=== PATIENT | male | born 1930 | race Caucasian/White ===

== ENCOUNTER 2016-07-16 13:45 | Observation (INO) | payer OTHER, MEDICARE ==
--- NOTE | 2016-07-08 13:49 | GHP ---
[f rep st] PREOP HISTORY AND PHYSICAL DATE OF ADMISSION: For upcoming surgery 07/15/2016 HISTORY OF PRESENT ILLNESS: Patient is an 86-year-old male referred by Dr. Lisa for evaluation of a right arteriovenous fistula. The patient reports it is enlarging and becoming more bothersome. ALLERGIES: Actos. MEDICATIONS: Aspirin, calcium, Lantus, NovoLog, Tylenol. PAST MEDICAL HISTORY: Diabetes, end-stage renal disease, hypertension. PAST SURGICAL HISTORY: Arteriovenous fistula placement. REVIEW OF SYSTEMS: Negative 10-point review of systems. PHYSICAL EXAM: GENERAL: Patient is a pleasant male in no apparent distress. HEAD AND NECK: Normocephalic atraumatic. Normal color. No JVD. CHEST: CTA bilaterally. HEART: Regular rhythm and rate. ABDOMEN: Soft, nontender. 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 IMPRESSION: An 86-year-old male with enlarging right arteriovenous fistula aneurysm. RECOMMENDATION: Right arm arteriovenous fistula aneurysm resection was explained to the patient in detail, including that the patient will likely have still an enlargement more proximally on the arm after surgery. Risks including vascular injury, infection, nerve injury and hematoma/seroma development requiring more surgery were all reviewed with the patient in detail. The patient elected to proceed with scheduling. /[id number]/MODL MTDD
[~2016-07-16 13:45] MED LIST: BUPIVACAINE 0.5% 30 ML SDV ONE; PAPAVERINE HCL 60 MG/2 ML SDV ONE; PROTAMINE SULFATE 50 MG/5 ML VIAL IVP ONE; SKIN ADHESIVE (DERMABOND) 1 EACH TP ONE; THROMBIN (RECOMBINANT) 5,000 UNIT VIAL TP ONE
[2016-07-16] MEDS ORDERED: CEFAZOLIN 2 GM/DEXTROSE/100 ML BAG IV ONE (14:17)
[2016-07-16] MEDS ORDERED: NS 1,000 ML IV ONE (14:28)
[2016-07-16 14:43] LABS: % IMMATURE GRANULYOCYTES 0.5 % (0.0-1.1); ABSOLUTE IMMATURE GRANULOCYTES 0.02 10^3/uL (0.00-0.10); ADD DIFF? NO; ADD MORPH? NO; ADD SCAN? NO; ATYPICAL LYMPHOCYTE FLAG 0 (0-99); FRAGMENT RBC FLAG 70 (0-99); HEMATOCRIT 33.8 % (40.0-51.0); HEMOGLOBIN 10.6 g/dL (13.7-17.5); LEFT SHIFT FLG 0 (0-99); LIPEMIA HEMOLYSIS FLAG 80 (0-99); MEAN CELL HEMOGLOBIN 30.1 pg (27.9-34.1); MEAN CELL HEMOGLOBIN CONCENTR. 31.4 g/dL (32.4-36.7); MEAN PLATELET VOLUME 9.1 fL (8.7-11.7); PLATELET CLUMPS FLAG 10 (0-99); PLATELET COUNT 300 10^3/uL (150-400); RED BLOOD CELL COUNT 3.52 10^6/uL (4.40-6.38); RED CELL DISTRIBUTION WIDTH 14.4 % (11.5-15.2)
[2016-07-16 14:51] LABS: INR 1.02 (0.83-1.16); PROTIME(PATIENT) 13.3 SEC (12.0-15.0)
[2016-07-16 14:58] LABS: ALANINE AMINOTRANSFERASE 19 IU/L (21-72); ALBUMIN 3.5 g/dL (3.5-5.0); ALKALINE PHOSPHATASE 80 IU/L (38-126); ANION GAP 9 mEq/L (8-16); ASPARTATE AMINOTRANSFERASE 12 IU/L (17-59); BILIRUBIN,TOTAL 0.7 mg/dL (0.1-1.4); CARBON DIOXIDE 31 mEq/l (22-31); CHLORIDE 102 mEq/L (97-110); CREATININE 2.6 mg/dL (0.7-1.3); GLOMERULAR FILTRATION RATE 24; GLUCOSE 91 mg/dL (70-100); POTASSIUM 4.2 mEq/L (3.5-5.2); SODIUM 142 mEq/L (134-144); TOTAL PROTEIN 6.6 g/dL (6.3-8.2)
[2016-07-16] MEDS ORDERED: PROPOFOL 200 MG/20 ML VIAL ONE (17:24)
[2016-07-16] MEDS ORDERED: fentaNYL 100 MCG/2 ML INJ ONE (17:24)
[2016-07-16] MEDS ORDERED: ONDANSETRON 4 MG/2 ML VIAL ONE (17:30)
[2016-07-16] MEDS ORDERED: GLYCOPYRROLATE 0.2 MG/1 ML VIAL ONE (17:33)
[2016-07-16] MEDS ORDERED: METOCLOPRAMIDE 10 MG/2 ML VIAL ONE (17:33)
[2016-07-16] MEDS ORDERED: PHENYLEPHRINE HCL 100 MCG/ML SYR ONE (17:59)
[2016-07-16] MEDS ORDERED: THROMBIN (RECOMBINANT) 5,000 UNIT VIAL TP ONE (18:54)
[2016-07-16] MEDS ORDERED: HYDROCODONE/APAP 5/325 TAB PO PRN (19:11)
[2016-07-16] MEDS ORDERED: ONDANSETRON 4 MG/2 ML VIAL IVP PRN (19:11)
[2016-07-16] MEDS ORDERED: HYDROmorphONE/DILAUDID 1 MG/ML SYR IVP PRN (19:11)
--- NOTE | 2016-07-16 19:14 | POSTOPPROG ---
Post Op Note Date of Operation: 07/16/16 Surgeon: Med Mcgraw [employer] Operation Manager: Shanthi Pa Anesthesiologist: Lior Hooks Anesthesia: GET(General Endotracheal) Pre-op Diagnosis: CRF, AVF aneurysm Post-op Diagnosis: same Procedure: RUE AVF aneursymorraphy Inf/Abcess present in the surg proc area at time of surgery?: No EBL: 50-100 Complications: none Specimen(s): none
--- NOTE | 2016-07-17 11:31 | SOAPPROG ---
SOAP Progress Note Assessment/Plan: Assessment: 1. ESRD. Will dialyze today on his MWF schedule. 2. AVF aneurysm. S/p plication this am. AVF appears patent. Have left message with Dr. Mcgraw but per report from lotus Ryan to cannulate AVF during dialysis. 3. Dispo. Possible d/c after dialysis today. Plan: 07/17/16 11:32 Subjective: Dialyzes MWF with Dr. Lisa. History of diabetes, HTN. Referred for enlarging AV fistula for surgical repair which he underwent this am. No report of adverse events during surgery. Pt has no complaints. Typically does not gain weight between treatments. Objective: Vital Signs Temp Pulse Resp BP Pulse Ox 36.3 C 61 19 139/74 H 94 07/17/16 07:29 07/17/16 07:29 07/17/16 07:29 07/17/16 07:29 07/17/16 07:29 Laboratory Results 07/16/16 14:20 07/16/16 14:20 07/16/16 07/17/16 07/18/16 05:59 05:59 05:59 Intake Total 700 Output Total 10 Balance 690 PT 13.3 SEC (12.0-15.0) 07/16/16 14:20 INR 1.02 (0.83-1.16) 07/16/16 14:20 Elderly male in bed, comfortable RRR, no m/g/r but with radiated bruit from AVF R upper arm bandaged, good bruit over AVF CTAB Abdomen soft, nontender No edema ICD10 Worksheet Patient Problems: Problems Problem Status Diagnosed Nausea & vomiting Acute
[2016-07-17 11:45] VITALS: BP 149/71; PULSE 64; RESP 14; TEMP 97.6; O2SAT 96
--- NOTE | 2016-07-17 16:34 | SOAPPROG ---
SOAP Progress Note Assessment/Plan: Assessment: 86yo male s/p right AVF surgery PE alert, awake, eating regular food comfortably chest CTA B/L rue bandage dry, radius pulse to palpation, hand warm, thrill present Plan: d/c after dialysis 07/17/16 16:32 Objective: Vital Signs Temp Pulse Resp BP Pulse Ox 36.4 C 64 14 149/71 H 96 07/17/16 11:45 07/17/16 11:45 07/17/16 11:45 07/17/16 11:45 07/17/16 11:45 Laboratory Results 07/16/16 14:20 07/16/16 14:20 07/16/16 07/17/16 07/18/16 05:59 05:59 05:59 Intake Total 700 Output Total 10 Balance 690 PT 13.3 SEC (12.0-15.0) 07/16/16 14:20 INR 1.02 (0.83-1.16) 07/16/16 14:20 ICD10 Worksheet Patient Problems: Problems Problem Status Diagnosed Nausea & vomiting Acute
[2016-07-17] MEDS ORDERED: INSULIN GLARGINE 100 UNITS/ML SYRINGE SC SCH (21:00)
[2016-07-18] MEDS ORDERED: FUROSEMIDE 40 MG TAB PO SCH (09:00)
[2016-07-18] MEDS ORDERED: FUROSEMIDE 80 MG TAB PO SCH (09:00)
[2016-07-18] MEDS ORDERED: ASPIRIN EC 81 MG TAB PO SCH (09:00)
[2016-07-18] MEDS ORDERED: LISINOPRIL 2.5 MG TAB PO SCH (09:00)
--- NOTE | 2016-07-18 11:27 | GDS ---
[f rep st] DISCHARGE SUMMARY REASON FOR ADMISSION: Surgery on arteriovenous fistula. HOSPITAL COURSE: The patient is an 86-year-old male, who was noted to have an enlarging arteriovenou s fistula. He underwent surgery with Dr. Mcgraw on 07/16/2016, right upper extremity arteriovenous fi stula aneurysmorrhaphy. The next day he was doing quite well, and after dialysis he was discharged w ithout complication. He was discharged with instructions to follow up in our office in approximately 7-10 days. /[id number]/MODL
--- NOTE | 2016-07-29 14:12 | GOP ---
[f rep st] OPERATIVE REPORT DATE OF OPERATION: 07/16/2016 SURGEON: Med Mcgraw MD [employer] HEATING INSTALLER: IGNACIO Crane ANESTHESIOLOGIST: Dr. 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 PROCEDURE PERFORMED: 1. Right upper extremity ultrasound vein mapping. 2. Brachiocephalic arteriovenous fistula aneurysmorrhaphy. FINDINGS: The patient was found to have a 5 cm pseudoaneurysm in the dialysis fistula. DESCRIPTION OF PROCEDURE: Patient taken to the operating room, where he received a satisfactory gene ral endotracheal anesthesia by Dr. Hooks, prepped and draped in the usual sterile fashion with his r ight arm outstretched on an arm board. The AV fistula origin was dissected free and controlled with a vessel loop. Incision was then made o merissa the aneurysm. A second and third incision were made at the distal end of the AV fistula, where i t was encircled and controlled with a vessel loop as well. An incision was then made over the course of the aneurysm and skin flaps were developed, dissecting away from the prabhakar of the aneurysm. The start and stop of the aneurysm was clearly identified. At that point, the patient was systemically heparinized and after adequate circulation time, the vess els were occluded. The aneurysm was then opened. The excess part of the aneurysm was excised, and t he vein was then closed in a 2-layer overlapping fashion with running 4-0 Prolene suture, reinforced with 4-0 Prolene mattress sutures creating a 10 mm diameter residual vein. There was still excellent flow in the AV fistula when the clamps were released and the suture line appeared to be hemostatic. Excess skin was excised, and the wound was closed with 3-0 Vicryl for the subcutaneous tissue, 4-0 Mo nocryl, and skin jairo for the skin. He tolerated the procedure quite well. He was taken to the r ecovery room in satisfactory condition. Blood loss from the procedure was less than 50 cc. /[id number]/MODL
== END 2016-07-17 18:06 | disposition home or self-care (01) ==
LOC: F3N 13:45 → F3E 20:18
PROVIDERS: ADMIT Surgery; ATTEND Surgery
PROC: 05V Upper Veins, Restriction (ICD-10-PCS; principal; 2016-07-16 16:15)
PROC: 5A1D00Z (ICD-10-PCS; principal; 2016-07-16 16:15)
DX: T82.898A Other specified complication of vascular prosthetic devices, implants and grafts, initial encounter (principal); N18.6 End stage renal disease; E11.22 Type 2 diabetes mellitus with diabetic chronic kidney disease; I12.0 Hypertensive chronic kidney disease with stage 5 chronic kidney disease or end stage renal disease; Z99.2 Dependence on renal dialysis; Z79.4 Long term (current) use of insulin
CPT/HCPCS: 36832; G0257; J0690; J1644; J1815; J2370; J2405; J2440; J2704; J2720; J2765; J3010

== ENCOUNTER 2016-08-20 12:21 | Inpatient (IN) | payer OTHER, MEDICARE ==
--- NOTE | 2016-08-20 12:27 | EDPHY ---
H & P Constitutional: Initial Vital Signs Temperature (C) 36.9 C 08/20/16 13:03 Heart Rate 113 H 08/20/16 13:03 Respiratory Rate 14 08/20/16 13:03 Blood Pressure 137/76 H 08/20/16 13:03 O2 Sat (%) 100 08/20/16 13:03 Allergies/Adverse Reactions: metformin Allergy (Verified 08/08/16 11:08) Diarrhea pioglitazone HCl [From Actos] Allergy (Verified 08/08/16 11:08) Diarrhea Home Medications: Medication Instructions Recorded Aspirin EC [Aspirin EC 81 mg (*)] 81 mg PO DAILY 08/21/09 Furosemide [Lasix 80 MG (*)] 80 mg PO DAILY 08/21/09 Insulin Glargine [Lantus 100 6 units SC HS 07/16/16 UNITS/ML (*)] Lisinopril [Zestril 2.5 mg (*)] 2.5 mg PO DAILY 07/16/16 Hydrocodone/APAP 5/325 [[place] 1 - 2 tab PO Q4 PRN #0 tab 07/17/16 5/325 (*)] Medical Decision Making ED Course/Re-evaluation: CHIEF COMPLAINT: Fall, unresponsive. HISTORY OF PRESENT ILLNESS:The patient is a 86-year-old male presenting via EMS as a full trauma activation for a fall and head trauma. Per EMS he was found at the base of his stairwell in his house. He was found in a pool of 1L minimally coagulated blood and emesis. He has a right parietal instability. Last seen normal up to a month ago. History severely limited due to patient's clinical condition. REVIEW OF SYSTEMS: Unobtainable due to patient's clinical condition. PHYSICAL EXAM: General Appearance: Alert, no distress, talking appropriately, comfortable. Head: Atraumatic without scalp tenderness or obvious injury. Large hematoma on occipital parietal region Eyes: Pinpoint pupils minimally reactive. Ears: Clear bilaterally, no perforation, no hemotympanum Nose: Atraumatic, no rhinorrhea, no septal hematoma Neck: The patient arrived in a cervical collar. All NEXUS criteria are negative. The cervical spine is non-tender and there is no pain or neurologic deficits with active range of motion. Supple, 2+ carotid upstroke bilaterally without bruit, no trauma, trachea midline. Cardiovascular: Heart is regular rate and rhythm without murmur. Bilateral carotid, radial, dorsalis pedis pulses intact. Good capillary refill all extremities. Chest: Atraumatic, equal bilateral breath sounds. Good oxygen saturations with normal minute ventilation. Chest is non-tender to palpation. Gastrointestinal: Soft, non-tender, non-distended. No rebound, guarding, or peritoneal signs. There is no evidence of external or internal trauma. Back: Spinal precautions were maintained as the patient was log-rolled with cervical control. There is no thoracic or lumbar spine or paraspinal tenderness. Spinal immobilization was removed. Extremities: All extremities are non-tender to palpation without obvious deformity. There is full active range of motion of the joints. Neurological: The patient has normal DTRs and non-focal Cranial nerves, motor, sensory, and cerebellar exam Skin: No lacerations, lehman, or abrasions. PAST MEDICAL HISTORY: Hypertension, renal failure (dialysis patient), appendectomy, diabetes. PAST SURGICAL HISTORY: Unknown. SOCIAL HISTORY: Lives alone. DIAGNOSTICS/PROCEDURES/CRITICAL CARE TIME: Procedure: Rapid sequence intubation. Indication for the procedure was head trauma. The patient was preoxygenated with 100% oxygen by face mask. The patient was given the following IV medications: Etomidate 30mg IV Etomidate and Succinylcholine 100mg IV. The patient was orally endotracheally intubated under direct visualization with a 8.0 ETT. Tube taped 25 at the lips. Tracheal intubation was confirmed with misting on the tube; breath sounds were auscultated equally bilaterally. Chest X -ray shows ETT in good position. The procedure was performed by the [facility] x ray technician. Study: CT of the head. Indication: Trauma, unresponsive. Results: 1. Left frontal temporoparietal subdural hematoma with 8 mm left to right midline shift. 2. Extensive bifrontal and left temporal and parietal subarachnoid hemorrhage. 3. Layering subdural hematoma along the tentorium. 4. Possible nondisplaced left maxillary fracture. 5. Additional findings as above. The study was read by the radiologist, Dr. Mendez. I viewed the images myself on the PACS system. Study: CT of the cervical spine. Indication: Trauma, unresponsive. Results: 1. 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 If pain persists and clinical suspicion warrants, consider flexion and extension cervical spine or MRI. 2. Severe spinal canal narrowing at C2-C3 and C7-T1. The study was read by the radiologist, Dr. Mendez. I viewed the images myself on the PACS system. Study: PA and Lateral Chest X-ray Indication: Trauma, Chest pain Results: I viewed the images myself on the PACS system. The radiologist interpretation is: 1. ET tube in good position. 2. No pneumothorax. 3. Small subpulmonic effusion with associated right basilar atelectasis versus scarring. DIFFERENTIAL DIAGNOSIS: The differential diagnosis for the patient's trauma included but was not limited to intracranial injury, long bone and pelvic bone fractures, spinal injury, intra-abdominal injury, and intra-thoracic injury. MEDICAL DECISION MAKING: Patient presents as a full trauma activation. Dr. Torres, surgery, at beside. Respiratory therapy at bedside. X-ray present. I met EMS on arrival and obtained a report from the x ray technician. An IV was immediately established and labs ordered. He moves his left upper extremity but it is unclear if this is purposeful movement. He does not withdraw to pain. He is verbally unresponsive. 1224: Patient intubated by x ray technician with Etomidate 30mg IV and Succinylcholine 100mg IV (see procedure notes for details). 1226: Negative FAST ultrasound performed by Dr. Torres, surgery. 1229: Patient log-rolled. On exam he has a large clotted hematoma and laceration to the right occipital/parietal region. ISTAT shows elevated creatinine. Electrolytes and glucose normal. This indicated the patient has been down for less than a week. Patient placed on propofol drip and taken to CT for head and c-spine imaging. 1250: Neurosurgery PA has reviewed the head CT and is in the room evaluating the patient. 1258: The head laceration will be sutured by Rodo Champion NP. He will then be taken to the operating room for management of intracranial hemorrhage. Ancef 2gm IV administered on request of neurosurgical PA. 1300: Dr. Meek, neurosurgery, at bedside. 1329: Consulted with Dr. Sun, anesthesiology. He recommends phenylephrine drip to maintain cerebral perfusion pressure. I spent a total of 45 minutes of critical care time including but not limited to obtaining history, performing a physical exam, ordering interventions and the bedside monitoring of those interventions, collecting and interpreting tests and discussion with consultants but not including time spent performing procedures. - Data Points Laboratory Results: Laboratory Results 08/20/16 12:25 08/20/16 12:25 08/20/16 08/20/16 08/20/16 12:25 12:25 12:25 WBC 8.77 10^3/uL 10^3/uL (3.80-9.50) RBC 3.68 10^6/uL L 10^6/uL (4.40-6.38) Hgb 10.4 g/dL L g/dL (13.7-17.5) POC Hgb Hct 33.5 % L % (40.0-51.0) POC Hct MCV 91.0 fL fL (81.5-99.8) MCH 28.3 pg pg (27.9-34.1) MCHC 31.0 g/dL L g/dL (32.4-36.7) RDW 14.6 % % (11.5-15.2) Plt Count 238 10^3/uL 10^3/uL (150-400) MPV 9.8 fL fL (8.7-11.7) Neut % (Auto) 71.3 % % (39.3-74.2) Lymph % (Auto) 18.2 % % (15.0-45.0) [place] % (Auto) 8.7 % % (4.5-13.0) Eos % (Auto) 0.3 % L % (0.6-7.6) Baso % (Auto) 0.5 % % (0.3-1.7) Nucleat RBC Rel Count 0.0 % % (0.0-0.2) Absolute Neuts (auto) 6.25 10^3/uL 10^3/uL (1.70-6.50) Absolute Lymphs (auto) 1.60 10^3/uL 10^3/uL (1.00-3.00) Absolute Monos (auto) 0.76 10^3/uL 10^3/uL (0.30-0.80) Absolute Eos (auto) 0.03 10^3/uL 10^3/uL (0.03-0.40) Absolute Basos (auto) 0.04 10^3/uL 10^3/uL (0.02-0.10) Absolute Nucleated RBC 0.00 10^3/uL 10^3/uL (0-0.01) Immature Gran % 1.0 % % (0.0-1.1) Immature Gran # 0.09 10^3/uL 10^3/uL (0.00-0.10) PT INR POC Sodium Sodium 133 mEq/L L mEq/L (134-144) POC Potassium Potassium 5.0 mEq/L mEq/L (3.5-5.2) POC Chloride Chloride 97 mEq/L mEq/L (97-110) Carbon Dioxide 25 mEq/l mEq/l (22-31) Anion Gap 11 mEq/L mEq/L (8-16) POC BUN BUN 28 mg/dL H mg/dL (7-23) Creatinine 2.3 mg/dL H mg/dL (0.7-1.3) POC Creatinine Estimated GFR 27 Glucose 239 mg/dL H mg/dL (70-100) POC Glucose Calcium 8.8 mg/dL mg/dL (8.5-10.4) Creatine Kinase 67 IU/L IU/L (0-224) Patient ABO/Rh O POSITIVE Antibody Screen NEGATIVE Crossmatch IS Only See Detail 08/20/16 08/20/16 12:20 10:15 WBC RBC Hgb POC Hgb 11.6 gm/dL L gm/dL (14.5-17.3) Hct POC Hct 34 % L % (42.8-50.6) MCV MCH MCHC RDW Plt Count MPV Neut % (Auto) Lymph % (Auto) [place] % (Auto) Eos % (Auto) Baso % (Auto) Nucleat RBC Rel Count Absolute Neuts (auto) Absolute Lymphs (auto) Absolute Monos (auto) Absolute Eos (auto) Absolute Basos (auto) Absolute Nucleated RBC Immature Gran % Immature Gran # PT 16.6 SEC H SEC (12.0-15.0) INR 1.34 H (0.83-1.16) POC Sodium 135 mEq/L mEq/L (134-144) Sodium POC Potassium 4.7 mEq/L mEq/L (3.3-5.0) Potassium POC Chloride 97 mEq/L mEq/L (96-108) Chloride Carbon Dioxide Anion Gap POC BUN 25 mg/dL H mg/dL (7-23) BUN Creatinine POC Creatinine 2.3 mg/dL H mg/dL (0.8-1.5) Estimated GFR Glucose POC Glucose 245 mg/dL H mg/dL (70-100) Calcium Creatine Kinase Patient ABO/Rh Antibody Screen Crossmatch IS Only Medications Given: Discontinued Medications Etomidate (Etomidate) 30 mg IVP EDNOW ONE Stop: 08/20/16 14:12 Last Admin: 08/20/16 12:27 Dose: 30 mg Cefazolin Sodium/Dextrose (Ancef 2 Gm (Premix)) 100 mls @ 200 mls/hr IV EDNOW ONE PRN Reason: Protocol Stop: 08/20/16 13:28 Last Admin: 08/20/16 14:16 Dose: 100 mls Ketamine HCl (Ketamine) 150 mg IVP EDNOW ONE Stop: 08/20/16 12:31 Last Admin: 08/20/16 14:17 Dose: 150 mg Succinylcholine Chloride (Quelicin) 100 mg IVP ONCE ONE Stop: 08/20/16 12:31 Last Admin: 08/20/16 12:27 Dose: 100 mg Point of Care Test Results: 08/20/16 12:20 POC Sodium 135 POC Potassium 4.7 POC Chloride 97 POC BUN 25 H POC Creatinine 2.3 H POC Glucose 245 H Departure - Departure Disposition: To OP Cath/Surgery Clinical Impression: Hematoma, Subarachnoid hemorrhage, Subdural hemorrhage Condition: Fair Report Scribed for: Estevan Bradshaw Report Scribed by: Stalin Yao Date of Report: 08/20/16 Time of Report: 12:51
[2016-08-20] MEDS ORDERED: KETAMINE 100 MG/10 ML SYR IVP ONE ×2 (12:30→12:57)
[2016-08-20] MEDS ORDERED: SUCCINYLCHOLINE CHLORIDE 200 MG/10 ML VIAL IVP ONE (12:30)
[2016-08-20] MEDS ORDERED: PROPOFOL/EMULSION 100 ML IV SCH (12:35)
[2016-08-20 12:39] LABS: ABSOLUTE IMMATURE GRANULOCYTES 0.09 10^3/uL (0.00-0.10); ADD DIFF? NO; ADD MORPH? NO; ADD SCAN? NO; ATYPICAL LYMPHOCYTE FLAG 10 (0-99); FRAGMENT RBC FLAG 20 (0-99); HEMATOCRIT 33.5 % (40.0-51.0); HEMOGLOBIN 10.4 g/dL (13.7-17.5); LEFT SHIFT FLG 0 (0-99); LIPEMIA HEMOLYSIS FLAG 80 (0-99); MEAN CELL HEMOGLOBIN 28.3 pg (27.9-34.1); MEAN PLATELET VOLUME 9.8 fL (8.7-11.7); PLATELET CLUMPS FLAG 0 (0-99); PLATELET COUNT 238 10^3/uL (150-400); RED BLOOD CELL COUNT 3.68 10^6/uL (4.40-6.38); RED CELL DISTRIBUTION WIDTH 14.6 % (11.5-15.2)
[2016-08-20] MEDS ORDERED: ceFAZolin 2 GM/DEXTROSE 100 ML IV ONE (12:59)
[2016-08-20] MEDS ORDERED: NALOXONE HCL 0.4 MG/ML INJ IVP PRN (13:03)
[2016-08-20] MEDS ORDERED: ONDANSETRON DISINTEGRATING 4 MG TAB PO PRN (13:03)
[2016-08-20 13:05] LABS: ANION GAP 11 mEq/L (8-16); CALCIUM 8.8 mg/dL (8.5-10.4); CARBON DIOXIDE 25 mEq/l (22-31); CHLORIDE 97 mEq/L (97-110); CREATININE 2.3 mg/dL (0.7-1.3); GLOMERULAR FILTRATION RATE 27; GLUCOSE 239 mg/dL (70-100); SODIUM 133 mEq/L (134-144)
[2016-08-20] MEDS ORDERED: NS 1,000 ML IV SCH (13:15)
[2016-08-20 13:24] LABS: INR 1.34 (0.83-1.16); PROTIME(PATIENT) 16.6 SEC (12.0-15.0)
[2016-08-20] MEDS ORDERED: PHENYLEPHRINE 10 MG/ML SDV ONE (13:28)
[2016-08-20] MEDS ORDERED: NS 100 ML BAG IV ONE (13:30)
[2016-08-20] MEDS ORDERED: BACITRACIN 50,000 UNITS/10 ML SYR IRR ONE (13:38)
[2016-08-20] MEDS ORDERED: BUPIVACAINE/EPI 0.25% 30 ML SDV ONE (13:38)
[2016-08-20] MEDS ORDERED: THROMBIN (RECOMBINANT) 5,000 UNIT VIAL TP ONE (13:38)
[2016-08-20] MEDS ORDERED: MANNITOL 20% 100 GM/500 ML BAG IV ONE (13:39)
[2016-08-20] MEDS ORDERED: AVITENE POWDER 1 GM JAR TP ONE (13:39)
[2016-08-20] MEDS ORDERED: PHENYLEPHRINE HCL 50 MG in NS 250 ML IV SCH (14:00)
[2016-08-20] MEDS ORDERED: ETOMIDATE 20 MG/10 ML VIAL IVP ONE (14:11)
--- NOTE | 2016-08-20 14:13 | GHP ---
DATE OF ADMISSION: 08/20/2016 CHIEF COMPLAINT: Patient found down. HISTORY OF PRESENT ILLNESS: The patient is an 86-year-old male who lives alone at home. He was hav ing Meals on Wheels delivered to his house today when he was found down and unresponsive. The patie nt was transported emergently to the [facility] Emergency Department where a CT scan o f the head was performed demonstrating diffuse bilateral traumatic subarachnoid hemorrhage, left gre ater than right, as well as a left-sided temporal subdural hematoma with associated approximately 5- 1/2 mm of left to right midline shift. The patient is minimally responsive at this time with some spontaneous, purposeful movement of his l eft upper extremity. He is not following commands. His GCS is 7. The patient has a history of afia lysis and diabetes. ALLERGIES: No known drug allergies. CURRENT MEDICATIONS: Aspirin. PAST MEDICAL HISTORY: Diabetes and dialysis 3 times a week. PAST SURGICAL HISTORY: Repairs of his fistula for his dialysis by Dr. Mcgraw. SOCIAL HISTORY: The patient lives alone. It is unknown whether he smokes or drinks. PHYSICAL EXAM: GENERAL: Elderly-appearing 86-year-old male, who is unresponsive. HEENT: His eyes are open. His pupils are sluggishly reactive bilaterally and equal. EXTREMITIES: He has spontane ous movement of his left upper extremity with extensive evidence of bruising in his upper extremitie s. NEUROLOGIC: Patient's eyes are open. His pupils are sluggishly reactive and equal at approximately 2 mm bilaterally. He has spontaneous movement of his left upper extremity which is purposeful, jose andrea towards his collar. He will withdraw to painful stimuli in both feet. There is no movement o f his right upper extremity. He is intubated and has a good gag reflex from the endotracheal tube. His Carl coma score is 7. LABORATORY DATA: I did review lab results. White blood cell count 8.7, hemoglobin 10.4, hematocrit 33.5, platelets are 238,000, sodium is 133, potassium is 5, chloride 9, carbon dioxide is 25, BUN 2 8, creatinine 2.3, INR is 1.34. CT scan of the head without contrast demonstrates an acute left temporal subdural hematoma. There i s approximately 5-1/2 mm of [id number] midline shift. There is diffuse bilateral traumatic subar achnoid hemorrhage on the left hemisphere of the brain, and to a lesser degree in the right frontal lobe. There is diffuse age-related volume loss. IMPRESSION: This is an 86-year-old male who was found down unresponsive. He has a left-sided acute subdural hematoma with a fbhc-[id number] midline shift of approximately 5.5 mm. He has a poor neurol ogic exam with a Carl coma scale of 7; however, when he came in it was 5. The patient started to move his left upper extremity more during his evaluation in the ED Trauma [place]. PLAN: All the above issues were discussed with the patient's daughter, by Dr. Meek over the teleph one this afternoon in the emergency department. The patient was seen and examined by Dr. Meek in [facility] emergency department at approximately 1 p.m. At this time, recommendation was made to proceed wi th surgical intervention to give the patient the best chance of improvement, given his poor neurolog ic exam and associated acute, left-sided subdural hematoma. The patient's daughter provided verbal consent over the telephone. The patient's cervical spine was cleared by Dr. Bradshaw in the ED, and we will proceed to the operating room. The patient's scalp laceration was repaired in the emergency department with sutures. /[id number]/MODL
[2016-08-20] MEDS ORDERED: ETOMIDATE 40 MG/20 ML INJ ONE (14:23)
[2016-08-20] MEDS ORDERED: SUCCINYLCHOLINE CHLORIDE*ANESTHESIA ONLY*200 MG/10 ML SYR IVP ONE (14:23)
[2016-08-20] MEDS ORDERED: fentaNYL 250 MCG/5 ML INJ ONE (14:24)
[2016-08-20] MEDS ORDERED: epHEDrine SULFATE 10 MG/ML SYR ONE (14:41)
[2016-08-20] MEDS ORDERED: PHENYLEPHRINE HCL 100 MCG/ML SYR ONE ×2 (14:41→16:28)
[2016-08-20] MEDS ORDERED: ROCURONIUM 50 MG/5 ML VIAL ONE ×2 (14:41→15:41)
[2016-08-20] MEDS ORDERED: SURGIFLO MATRIX KIT WITH THROMBIN TP ONE (14:44)
[2016-08-20 14:50] LABS: BASE EXCESS -1.4 mEq/L (-2.5-2.5); BICARBONATE 22 mEq/L (22-26); HEMOGLOBIN ABG 7.3 gm/dL (14.5-17.3); IONIZED CALCIUM 1.11 MMOL/L (1.12-1.30); MEASURED OXYGEN SATURATION 100 % (92-95); PCO2 36 mmHg (34-38); PO2 234 mmHg (65-75); SODIUM ABG 134 mEq/L (137-146); TCO2 23 mEq/L (23-27)
[2016-08-20 14:55] LABS: GLUCOSE 236 mg/dL (70-100)
[2016-08-20 14:56] LABS: INR 1.42 (0.83-1.16)
[2016-08-20 15:00] LABS: PROTIME(PATIENT) 17.3 SEC (12.0-15.0)
[2016-08-20] MEDS ORDERED: DOBUTamine/DEXTROSE 250 ML IV SCH (15:00)
[2016-08-20] MEDS ORDERED: DESMOPRESSIN ACETATE 20 MCG in NS 50 ML IV ONE (15:30)
[2016-08-20] MEDS ORDERED: ONDANSETRON 4 MG/2 ML VIAL IVP PRN (15:34)
[2016-08-20] MEDS ORDERED: ACETAMINOPHEN 325 MG TAB PO PRN (15:34)
[2016-08-20] MEDS ORDERED: LACTULOSE 20 GM/30 ML UDCUP PO PRN (15:34)
[2016-08-20] MEDS ORDERED: BISACODYL 10 MG SUPP PR PRN (15:34)
[2016-08-20] MEDS ORDERED: MAGNESIUM HYDROXIDE 30 ML UDCUP PO PRN (15:34)
[2016-08-20] MEDS ORDERED: POLYETHYLENE GLYCOL 3350 17 GM PKT PO PRN (15:34)
[2016-08-20] MEDS ORDERED: PROPOFOL/EMULSION 500 MG/50 ML BOTTLE IV ONE (15:36)
[2016-08-20] MEDS ORDERED: NS W/ 20 KCl/L 1,000 ML IV SCH (15:45)
[2016-08-20] MEDS ORDERED: CALCIUM CHLORIDE 1 GM/10 ML INJ ONE (16:29)
[2016-08-20] MEDS ORDERED: EPINEPHrine 1 MG/10 ML SYR IVP ONE (16:29)
--- NOTE | 2016-08-20 17:03 | CPEKG ---
Heart Rate: 109 RR Interval: 550 P-R Interval: 172 QRSD Interval: 82 QT Interval: 348 QTC Interval: 469 P [place]: 74 QRS [place]: -12 T Wave [place]: 228 EKG Severity - ABNORMAL ECG - EKG Impression: SINUS TACHYCARDIA WITH IRREGULAR RATE 91-133 EKG Impression: PROBABLE ANTEROSEPTAL INFARCT, OLD EKG Impression: LATERAL LEADS ARE ALSO INVOLVED EKG Impression: THIS APPEARS TO BE ATRIAL TACHYCARDIA WITH VARIABLE BLOCK Electronically Signed By: Domingo Brown 22-Aug-2016 09:01:43
[2016-08-20] MEDS ORDERED: niCARdipine/NACL/200 ML BAG IV ONE (17:11)
--- NOTE | 2016-08-20 17:16 | POSTOPPROG ---
Post Op Note Date of Operation: 08/20/16 Surgeon: Nav Meek Shoe Salesperson: Humble Anesthesiologist: Dino Anesthesia: GET(General Endotracheal) Pre-op Diagnosis: Acute Left SDH Post-op Diagnosis: same Indication: brain herniation, altered mental status, acute SDH Procedure: left craniotomy Inf/Abcess present in the surg proc area at time of surgery?: No EBL: 50-100 Complications: none Drains: Fran Gutierrez (to bulb suction)
--- NOTE | 2016-08-20 17:19 | SOAPPROG ---
SOAP Progress Note Assessment/Plan: Assessment: POST OP CHECK: eyes closed intubated, still sedated from anesthesia and Ketamine that was given in ED unable to obtain good neuro exam. Pupils are equal, but sluggish Plan: CPM in ICU Keep systolic BP below 140 08/20/16 17:17 Subjective: eyes closed, no movement. intubated, sedated Objective: Vital Signs Temp Pulse Resp BP Pulse Ox 35.9 C L 106 H 14 121/55 H 100 08/20/16 16:30 08/20/16 16:30 08/20/16 16:30 08/20/16 16:30 08/20/16 16:30 Laboratory Results 08/20/16 14:30 08/19/16 08/20/16 08/21/16 05:59 05:59 05:59 Intake Total 1500 Output Total 500 Balance 1000 PT 17.3 SEC (12.0-15.0) H 08/20/16 14:30 INR 1.42 (0.83-1.16) H 08/20/16 14:30 NEURO: PERRLA 3mm, sluggish No response to painful stimulation no spontaneous movement Dr. Meek saw pt in ICU recently as well ICD10 Worksheet Patient Problems: Problems Problem Status Onset Hematoma Acute Subarachnoid hemorrhage Acute Subdural hemorrhage Acute Nausea & vomiting Acute
[2016-08-20 17:20] LABS: HEMATOCRIT 31.8 % (40.0-51.0); HEMOGLOBIN 10.3 g/dL (13.7-17.5)
[2016-08-20] MEDS ORDERED: niCARdipine/NACL 200 ML IV SCH (17:30)
[2016-08-20] MEDS: fentaNYL/NACL 100 ML IV SCH (17:38)
[2016-08-20 17:45] LABS: BASE EXCESS -4.5 mEq/L (-2.5-2.5); BICARBONATE 22 mEq/L (22-26); MEASURED OXYGEN SATURATION 99 % (92-95); PCO2 47 mmHg (34-38); PO2 214 mmHg (65-75); TCO2 23 mEq/L (23-27)
[2016-08-20 17:46] LABS: O2 CONCENTRATIION 60 % (0-100); P/F RATIO 357 RATIO; SIMV YES
[2016-08-20 17:47] LABS: END TIDAL CO2 41; PRESSURE SUPPORT 7
[2016-08-20] MEDS: INSULIN REGULAR HUMAN 100 UNIT/ML SC SCH ×2 (17:56→22:29)
[2016-08-20 18:08] LABS: ANION GAP 6 mEq/L (8-16); CALCIUM 8.2 mg/dL (8.5-10.4); CARBON DIOXIDE 23 mEq/l (22-31); CHLORIDE 103 mEq/L (97-110); CREATININE 2.1 mg/dL (0.7-1.3); GLOMERULAR FILTRATION RATE 30; GLUCOSE 267 mg/dL (70-100); POTASSIUM 4.6 mEq/L (3.5-5.2); SODIUM 132 mEq/L (134-144)
--- NOTE | 2016-08-20 19:10 | SOAPPROG ---
SHERLEY Progress Note Assessment/Plan: Assessment: 1. esrd: will tentatively plan to dialyze him tomorrow as 2nd case. Volume status looks good but would be judicious with ivf. Avf appears patent. Ideally iv's should be avoided on R UE. 2. SAH: s/p OR, pre-op neuro exam quite poor and in context of extremely poor state of health his prognosis for meaningful recovery seems quite grim. Plan: 08/20/16 19:06 08/20/16 19:13 Subjective: Esrd on hd MWF at [facility], followed by Dr. Lisa. Has been in declining health and doing poorly in general. Found down today at home, had SAH , SDH on imaging. Taken to OR and now in icu. Initially on Cardene, now Tray. Getting bolus of ivf for low cvp. Objective: Vital Signs Temp Pulse Resp BP Pulse Ox 36.6 C 96 18 132/58 H 100 08/20/16 18:27 08/20/16 18:27 08/20/16 18:27 08/20/16 18:27 08/20/16 18:27 Laboratory Results 08/20/16 17:00 08/20/16 17:20 08/19/16 08/20/16 08/21/16 05:59 05:59 05:59 Intake Total 1500 Output Total 755 Balance 745 PT 17.3 SEC (12.0-15.0) H 08/20/16 14:30 INR 1.42 (0.83-1.16) H 08/20/16 14:30 Physical Exam - Physical Exam General Appearance: cachetic Respiratory: decreased breath sounds Cardiac/Chest: regular rate, rhythm Extremities: pedal edema (none), other (+pulsatile RUE avf with soft bruit; + PIV in R forearm) ICD10 Worksheet Patient Problems: Problems Problem Status Onset Hematoma Acute Subarachnoid hemorrhage Acute Subdural hemorrhage Acute Nausea & vomiting Acute
--- NOTE | 2016-08-20 19:19 | GHP ---
DATE OF ADMISSION: 08/20/2016 CHIEF COMPLAINT: Trauma activation. HISTORY OF PRESENT ILLNESS: The patient is an 86-year-old man who was found by his [employer] delivery inside his house with a large amount of blood by his scalp. He was rushed to the emergency room. On arrival to the emergency room, his eyes were open, but he did not have purposeful body movement. He has not said anything. His GCS was 5. He also had emesis at the scene. A neuro exam was perfo rmed and he did not withdraw to pain. He was intubated. I was present prior to patient's arrival. PAST MEDICAL HISTORY: Obtained from chart review: Chronic renal failure, diabetes mellitus, hypert ension. PAST SURGICAL HISTORY: Cardiac surgery, AV fistula surgery, foot surgery. He also has a surgical s car on his abdomen. ALLERGIES: Per chart review: Metformin causing diarrhea and Actos causing diarrhea. MEDICATIONS: Unable to be obtained. CODE STATUS: Full code. REVIEW OF SYSTEMS: Unable to be obtained. FAMILY HISTORY: Unable to be obtained. PHYSICAL EXAMINATION: GENERAL: GCS 5. HEENT: He had emesis in his mouth. Intubation was perform ed by Dr. Bradshaw. He had equal and bilateral breath sounds. He had a large amount of coagulated b lood behind his head, but no other obvious injuries. HEENT: Secondary exam: He had at least a 5 cm scalp laceration on the right posterior occiput. Th e calvarium was visible. It undermined at least 3 cm in 2 directions. Eyes: His pupils were equal and round with minimal reaction. Ears: No hemotympanum, no otorrhea. Nose: No rhinorrhea. Mout h: Vomitus in mouth. NECK: Cervical collar was intact on arrival. LUNGS: Clear to auscultation bilaterally. No increased work of breathing. CARDIAC: Regular rate. CHEST: Atraumatic. No obvi ous contusions. BACK: No gross injuries to his spine noted. No ecchymosis. EXTREMITIES: No obvi ous deformities. He did move his left arm during the exam, but it was not purposeful. NEURO: I tr ied multiple times to have a response to pain, and he did not. LABORATORY DATA: Results reviewed: I personally accompanied him to the CT scan and reviewed the CT scans with the radiologist. He has a subdural hematoma and subarachnoid hemorrhage. There was an 8 mm left to right midline shift. 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 The chest x-ray showed the endotracheal tube in good position without evidence of pneumothorax. I p erformed a fast exam which was negative. IMPRESSION AND PLAN: The patient is an 86-year-old man found down after a fall with a GCS of 5, a s ubdural subarachnoid hemorrhage, who will be going to the operating room with Dr. Meek. I spoke wi th his daughter by phone. I spent greater than 45 minutes performing critical care [facility] During the time in the ER, we had to titrate his Propofol due to him being hypote nsive. Ketamine was given. He will be placed on pressors to maintain his cerebral perfusion pressu re. His scalp laceration was being attended to as I was in the ER, and so a central line will be pl aced in the operating room. /[id number]/MODL
--- NOTE | 2016-08-20 19:39 | GOP ---
DATE OF OPERATION: 08/20/2016 SURGEON: Nav Meek MD HOTEL ATTENDANT: Geoff Kate, PAWEL PREOPERATIVE DIAGNOSIS: Status post trauma with a fall down the stairs and a left frontotemporal fink bdural hematoma with midline shift and brain compression, as well as multiple temporal and frontal c ontusions. POSTOPERATIVE DIAGNOSIS: Status post trauma with a fall down the stairs and a left frontotemporal s ubdural hematoma with midline shift and brain compression, as well as multiple temporal and frontal contusions. PROCEDURE PERFORMED: 1. Left frontotemporal craniotomy, evacuation of traumatic subdural hematoma, and partial temporal lobectomy for traumatic contusions. 2. Repair of complex right parietal scalp laceration greater than 5 cm. FINDINGS: Left subdural hematoma. ESTIMATED BLOOD LOSS: Approximately 100 cc. DESCRIPTION OF PROCEDURE: Informed consent was obtained from the patient's daughter. The patient w as brought to the operating room and was placed in supine position on the operating table. A formal time-out was performed identifying the patient by name, medical record number, and date of . Preoperative antibiotics were given. The endotracheal tube was connected to the anesthesia machine and general endotracheal anesthesia was smoothly induced. The head was turned slightly toward the r ight side on a horseshoe headrest, and hair was clipped from the left frontotemporal region. A reve rse ?-style incision was marked in standard trauma fashion. The head was then prepped and draped in the normal sterile fashion. 10 cc of 0.25% Marcaine with epinephrine was infiltrated in the skin f or hemostasis. The skin incision was then made using a 10 blade, and the subcutaneous tissues were dissected using monopolar electrocautery. Pooja clips were placed for hemostasis. The temporalis f ascia and muscle were opened in line with the incision, and a single myocutaneous flap was elevated anteriorly. Next, 3 bur holes were created in a large pterional fashion with the most posterior bur hole being at the posterior aspect of the temporalis muscle. The craniotome was then used to turn a large (greater than 10 cm) craniotomy flap. The subtemporal region was further craniectomized usi ng the Leksell rongeurs. All bleeding was controlled with bipolar electrocautery and Gelfoam. Next , the dura was opened in a cruciate fashion, exposing a large amount of subdural blood that was unde r some pressure, which was easily evacuated. We inspected the frontal and temporal lobes, and there was a significant amount of temporal contusion and temporal lobe swelling. Therefore, bipolar elec trocautery and suction were used to remove the anterior and lateral portion of the temporal lobe saeed t was heavily contused, which allowed for a lot of relaxation of the temporal lobe and no further he rniation out of the craniectomy flap. The remainder of the brain was relatively slack and not swell ing from the defect. The portion of the temporal lobe that had been removed was covered with Surgic el. The wound was copiously irrigated using bacitracin irrigation. At this point, given that the b rain was slack, we decided to replace the bone flap, such that he would not have to undergo a later cranioplasty; so the dura was tacked closed using interrupted 4-0 Nurolon's. A small amount of Gelf oam was placed in the subtemporal region, and the bone flap was plated back in place using Synthes t itanium plates and screws. A submuscular BRENDAN drain was placed. The temporalis muscle and its fascia were closed using interrupted 2-0 Vicryl's, the galea was closed using interrupted 2-0 Vicryl's, an d the skin was closed using jairo. The wound was then sterilely dressed. The head was then turne d toward the left side, and the parietal region was exposed. The hair was extremely matted and bloo d covered, and this hair was clipped away from the edges of what turned out to be a stellate-shaped right parietal scalp laceration. This was extensively washed out using bacitracin irrigation and so me peroxide. The skull bone could be seen at the bottom of the incision. A Metzenbaum scissors was used to undermine the edges somewhat in order to free the galea such that the skin was more mobile. We then placed a number of interrupted 2-0 nylon vertical mattress sutures to invert the skin edge s and bring them together. A small amount of the skin had to be resected, as it was macerated, but overall the wound closure looked reasonable. This was then covered with bacitracin, and both wounds were completely sterilely dressed. The patient was then taken to the ICU still intubated. There w ere no operative complications. BRIEF CLINICAL HISTORY: The patient is an 86-year-old man with diabetes and chronic renal failure o n dialysis, who was last known well last evening and apparently was found at the bottom of a flight of stairs unconscious this morning. He presented to the emergency department with a GCS of 5, was i ntubated, and a CT revealed a roughly 1 cm left frontal subdural hematoma with some brain compressio n and roughly 5 mm of shift from left to right. There was a number of temporal and frontal contusio ns on the left side as well. I spoke to his daughter regarding the options, and despite the fact th at I do not think that he probably will have likely a positive outcome, she would like to proceed wi th surgical evacuation to see if he gets any kind of recovery. FLUIDS AND URINE OUTPUT: Per the anesthesia record. COUNTS: All sponge and needle counts were correct at the end of the case. /[id number]/MODL
[2016-08-20] MEDS ORDERED: FAMOTIDINE 20 MG/NACL 50 ML IV SCH ×2 (21:00)
[2016-08-20] MEDS ORDERED: levETIRAcetam 500 MG TAB PO SCH (21:00)
[2016-08-20] MEDS: SENNOSIDES/DOCUSATE SODIUM TAB PO SCH (22:24)
[2016-08-20] MEDS: DEXMEDETOMIDINE HCL 400 MCG in NS 100 ML IV SCH (22:25)
[2016-08-20] MEDS: levETIRAcetam 500 MG in NS 100 ML IV SCH (22:25)
[2016-08-20] MEDS: FAMOTIDINE 20 MG/NACL 50 ML IV SCH (22:30)
[2016-08-20] MEDS: CHLORHEXIDINE GLUCONATE 15 ML UDL PO SCH (22:33)
[2016-08-21] MEDS: fentaNYL/NACL 100 ML IV SCH ×2 (04:39→19:50)
[2016-08-21 04:43] LABS: % IMMATURE GRANULYOCYTES 0.7 % (0.0-1.1); ABSOLUTE IMMATURE GRANULOCYTES 0.09 10^3/uL (0.00-0.10); ADD DIFF? NO; ADD MORPH? NO; ADD SCAN? NO; ATYPICAL LYMPHOCYTE FLAG 10 (0-99); BASE EXCESS -3.4 mEq/L (-2.5-2.5); BICARBONATE 21 mEq/L (22-26); FRAGMENT RBC FLAG 0 (0-99); HEMATOCRIT 27.4 % (40.0-51.0); HEMOGLOBIN 9.1 g/dL (13.7-17.5); LEFT SHIFT FLG 0 (0-99); LIPEMIA HEMOLYSIS FLAG 80 (0-99); MEAN CELL HEMOGLOBIN CONCENTR. 33.2 g/dL (32.4-36.7); MEAN CELL VOLUME 90.4 fL (81.5-99.8); MEAN PLATELET VOLUME 9.9 fL (8.7-11.7); MEASURED OXYGEN SATURATION 99 % (92-95); PCO2 35 mmHg (34-38); PLATELET CLUMPS FLAG 0 (0-99); PLATELET COUNT 153 10^3/uL (150-400); PO2 126 mmHg (65-75); RED BLOOD CELL COUNT 3.03 10^6/uL (4.40-6.38); RED CELL DISTRIBUTION WIDTH 14.3 % (11.5-15.2); TCO2 22 mEq/L (23-27)
[2016-08-21 04:47] LABS: END TIDAL CO2 31; PATIENT RATE 18; PIP 16; PRESSURE SUPPORT 7
[2016-08-21 04:55] LABS: ANION GAP 6 mEq/L (8-16); CALCIUM 8.1 mg/dL (8.5-10.4); CARBON DIOXIDE 22 mEq/l (22-31); CHLORIDE 109 mEq/L (97-110); CREATININE 2.5 mg/dL (0.7-1.3); GLOMERULAR FILTRATION RATE 25; GLUCOSE 61 mg/dL (70-100); POTASSIUM 4.5 mEq/L (3.5-5.2); SODIUM 137 mEq/L (134-144)
--- NOTE | 2016-08-21 07:53 | SOAPPROG ---
SOAP Progress Note Assessment/Plan: Assessment: intubated, on Precedex Requiring Pressors MAPs over 65 CTH Plan: CPM in ICU Wean to extubate per Intensivists Keep systolic BP below [address] Meek Dialysis today 08/21/16 08:06 08/21/16 08:11 Subjective: eyes close, opens to tactile stimulation. He adjusts himself in bed. moving left sided more that right. Objective: Vital Signs Temp Pulse Resp BP Pulse Ox 36.4 C 61 18 130/53 H 100 08/21/16 07:00 08/21/16 07:00 08/21/16 07:00 08/21/16 07:00 08/21/16 07:00 Laboratory Results 08/21/16 04:30 08/21/16 04:30 08/20/16 08/21/16 08/22/16 05:59 05:59 05:59 Intake Total 2716 Output Total 1085 Balance 1631 PT 17.3 SEC (12.0-15.0) H 08/20/16 14:30 INR 1.42 (0.83-1.16) H 08/20/16 14:30 Neuro: PERRLA intubated not following commands moves left side greater than right CTH 08/21/16 shows new intraventricular blood posteriorly as well as new large left posterior ICH ICD10 Worksheet Patient Problems: Problems Problem Status Onset Hematoma Acute Subarachnoid hemorrhage Acute Subdural hemorrhage Acute Nausea & vomiting Acute
--- NOTE | 2016-08-21 07:57 | SOAPPROG ---
SOAP Progress Note Assessment/Plan: Assessment: intubated, on Precedex Requiring Pressors MAPs over 65 CTH Plan: CPM in ICU Keep systolic BP below 140 Subjective: eyes closed, opens to tactile stimulation and moving left sided more than right Objective: Vital Signs Temp Pulse Resp BP Pulse Ox 36.4 C 61 18 130/53 H 100 08/21/16 07:00 08/21/16 07:00 08/21/16 07:00 08/21/16 07:00 08/21/16 07:00 Laboratory Results 08/21/16 04:30 08/21/16 04:30 08/20/16 08/21/16 08/22/16 05:59 05:59 05:59 Intake Total 2716 Output Total 1085 Balance 1631 PT 17.3 SEC (12.0-15.0) H 08/20/16 14:30 INR 1.42 (0.83-1.16) H 08/20/16 14:30 ICD10 Worksheet Patient Problems: Problems Problem Status Onset Hematoma Acute Subarachnoid hemorrhage Acute Subdural hemorrhage Acute Nausea & vomiting Acute
[2016-08-21] MEDS: INSULIN REGULAR HUMAN 100 UNIT/ML SC SCH ×4 (07:58→21:14)
[2016-08-21] MEDS: CHLORHEXIDINE GLUCONATE 15 ML UDL PO SCH ×2 (08:02→20:57)
[2016-08-21] MEDS: levETIRAcetam 500 MG in NS 100 ML IV SCH ×2 (08:48→20:57)
--- NOTE | 2016-08-21 09:07 | SOAPPROG ---
SOAP Progress Note Assessment/Plan: Assessment: 1. ESRD. HD later today per MWF schedule. 2. SDH. S/p craniotomy. Cerebral contusions s/p partial L parietal lobectomy. Supportive care. 3. Anemia. Hgb down slightly. Will initiate procrit if drops further. Want to keep SBP < 140. Plan: 08/21/16 09:04 08/21/16 09:06 08/21/16 09:09 08/21/16 09:10 Subjective: Required low dose sedation and pressors over night. Otherwise no major concerns. Objective: Vital Signs Temp Pulse Resp BP Pulse Ox 36.4 C 56 L 18 144/54 H 100 08/21/16 07:00 08/21/16 08:00 08/21/16 08:00 08/21/16 08:00 08/21/16 08:00 Laboratory Results 08/21/16 04:30 08/21/16 04:30 08/20/16 08/21/16 08/22/16 05:59 05:59 05:59 Intake Total 2716 Output Total 1085 Balance 1631 PT 17.3 SEC (12.0-15.0) H 08/20/16 14:30 INR 1.42 (0.83-1.16) H 08/20/16 14:30 Awake, sedated, intubated elderly male with bandage on scalp Yaniv, RR, no m/g/r CTAB Abdom soft, nt Feet cold, no edema R arm AVF, good thrill. R arm slightly swollen CT head: Improved temporal SDH Worsened frontal and parietooccipital hemorrhages ICD10 Worksheet Patient Problems: Problems Problem Status Onset Nausea & vomiting Acute Hematoma Acute Subarachnoid hemorrhage Acute Subdural hemorrhage Acute
[2016-08-21] MEDS: SENNOSIDES/DOCUSATE SODIUM TAB PO SCH ×2 (10:35→21:12)
--- NOTE | 2016-08-21 11:07 | SOAPPROG ---
SOAP Progress Note Assessment/Plan: Assessment: Plan: Subjective: pt on vent secondary to craniotomy and brain injury ct from this am shows worsening bleed in left occiptial area pneumocephaly. lungs clear, heart r 55, no murmur. abd soft. on 35 mls hr fluid secondary to known renal failure- will be dialyzed today. daughter to arrive today. pt is apparently a dnr, no cpr. cont currnet supportive care. Objective: Vital Signs Temp Pulse Resp BP Pulse Ox 36.4 C 53 L 18 113/46 L 100 08/21/16 07:00 08/21/16 10:00 08/21/16 10:00 08/21/16 10:00 08/21/16 10:00 Laboratory Results 08/21/16 04:30 08/21/16 04:30 08/20/16 08/21/16 08/22/16 05:59 05:59 05:59 Intake Total 2716 Output Total 1085 85 Balance 1631 -85 PT 17.3 SEC (12.0-15.0) H 08/20/16 14:30 INR 1.42 (0.83-1.16) H 08/20/16 14:30 ICD10 Worksheet Patient Problems: Problems Problem Status Onset Hematoma Acute Subarachnoid hemorrhage Acute Subdural hemorrhage Acute Nausea & vomiting Acute
[2016-08-21] MEDS: DEXMEDETOMIDINE HCL 400 MCG in NS 100 ML IV SCH (13:47)
--- NOTE | 2016-08-21 15:07 | PDINTPN ---
Contract Technical Writer Progress Note Assessment/Plan: Assessment: S/P SDH with evac and partial temporal lobectomy. Now with markedly increased intraparenchymal hemorrhage. Very poor prognosis for meaningful recovery. Respiratory Failure: Remains on vent, well-treated. Diabetes: BSs now improved with insulin Anemia: Trended down slightly Abnormal telemetry waveform. 12-lead ECG, troponins negative. ESRD: Getting HD today. Plan: Continue vent support, insulin, and BS checks. Follow Hgb. I discussed the chanel's case with his daughter via phone. I told her that his prognosis for meaningful recovery and independence was close to nil. She agrees that comfort care is appropriate, but would like him kept on the ventilator until she can arrive from [place], hopefully tomorrow. She wants him made DNR. 08/21/16 15:14 08/21/16 15:24 Subjective: Unresponsive Objective: Vital Signs Temp Pulse Resp BP Pulse Ox 36.4 C 73 22 H 152/60 H 100 08/21/16 12:00 08/21/16 14:00 08/21/16 14:00 08/21/16 14:00 08/21/16 14:00 Laboratory Results 08/21/16 04:30 08/21/16 04:30 08/20/16 08/21/16 08/22/16 05:59 05:59 05:59 Intake Total 2716 Output Total 1085 85 Balance 1631 -85 PT 17.3 SEC (12.0-15.0) H 08/20/16 14:30 INR 1.42 (0.83-1.16) H 08/20/16 14:30 CXR: Unchanged. Reviewed images CTH: New 4cm Left occipital hemorrhage and increased right frontal hemorrhage Laboratory Tests 08/21/16 04:30 pCO2 35 pO2 126 H Total CO2 22 L ABG pH 7.39 Total O2 Concentration 40.0 Actual Respiration Rate 18 Tidal Volume 500 PEEP 5 Physical Exam - Physical Exam General Appearance: unresponsive, No alert EENT: ET tube, other (s/p craniectomy) Neck: other (c-collar) Respiratory: lungs clear, normal breath sounds Cardiac/Chest: regular rate, rhythm, No edema Abdomen: normal bowel sounds, soft Skin: normal color, warm/dry Extremities: normal inspection Neuro/Psych: No alert, No oriented x 3 ICD10 Worksheet Patient Problems: Problems Problem Status Onset Hematoma Acute Subarachnoid hemorrhage Acute Subdural hemorrhage Acute Nausea & vomiting Acute
--- NOTE | 2016-08-21 15:57 | GCON ---
PULMONARY/CRITICAL CARE CONSULTATION DATE OF CONSULTATION: 08/20/2016 REFERRING PHYSICIAN: Carolin Torres MD REASON FOR REFERRAL: Evaluation and management of EKG changes and respiratory failure. HISTORY OF PRESENT ILLNESS: The patient is an 86-year-old gentleman with chronic renal failure, on dialysis, who lives at home. He has apparently had a fairly poor functional status. He was found d own and unresponsive today and was brought to the emergency department where a CT scan had showed an acute left temporal subdural hematoma with 5.5 mm of midline shift and bilateral traumatic subarach noid hemorrhage. He was taken emergently to the operating room where Dr. Meek performed a craniotomy with evacuation of the subdural and partial resection of the temporal lobe. The patient initially had a [place] ma Scale of 5 and has remained intubated since admission. PAST MEDICAL HISTORY: 1. Diabetes. 2. End-stage renal disease. On hemodialysis 3 times weekly. MEDICATIONS: Aspirin, furosemide, lisinopril, and insulin. ALLERGIES: Metformin and pioglitazone. SOCIAL HISTORY: The patient lives alone. Other social history is unknown. He has a daughter who l jeramy in [place] who is his medical decision maker. REVIEW OF SYSTEMS: Unobtainable. PHYSICAL EXAMINATION: GENERAL: The patient is intubated and he is unresponsive. VITAL SIGNS: Blo od pressure is 121/55 with a pulse of 106. He is afebrile. Oxygen saturations are 100% on 100% oxy gen. HEENT: He is status post craniotomy. Pupils are sluggishly reactive and equal. NECK: No ad enopathy. Trachea is midline. CHEST: Clear to auscultation. CARDIAC: Regular rate and rhythm wi thout murmur. ABDOMEN: Soft, nontender. Bowel sounds are present. EXTREMITIES: No clubbing, cya nosis, or edema. He has a fistula in his right upper extremity. LABORATORY: White blood count is 8.7, hemoglobin is 10.4, sodium is 133 with a creatinine of 2.3. His INR is 1.3. DIAGNOSTIC DATA: A CT scan of the head shows the left temporal subdural hematoma with shift and radha ateral subarachnoid hemorrhages. Images reviewed. A chest x-ray shows the endotracheal tube is in good position, there is no pneumothorax, and the claudette gs are essentially clear. A 12-lead ECG demonstrates sinus tachycardia with old changes but no acute changes. ASSESSMENT: 1. Status post fall with subdural hematoma and intraparenchymal hemorrhage. The patient has had ev acuation of this as well as a partial lobectomy of the left temporal lobe. He remains comatose. Ov desmond, his prognosis for recovery from this is very poor. 2. Respiratory failure. The patient is coming off anesthesia, but likely will not have the respira tory drive or airway protection to be extubated, so I anticipate he will remain intubated. 3. EKG changes. Monitor showed some ST-segment depression, but a 12-lead ECG does not show this. 4. Diabetes. The patient's blood sugars are currently high, in the low 200s. 5. End-stage renal disease. The patient is on hemodialysis but has no acute indication for dialysi s at this point. 6. Anemia. The patient has mild anemia that is probably in a typical range for him, given his end- stage renal disease. RECOMMENDATION: Continue mechanical ventilatory support. Repeat CT scan as per Neurosurgery. Slid ing scale insulin will be used to help control the patient's blood sugars. The patient's hemoglobin will be followed. I will order troponins and if these are negative, I do not think any further car diac evaluation is warranted. CRITICAL CARE TIME: 40 minutes. /[id number]/MODL
[2016-08-21] MEDS: FAMOTIDINE 20 MG/NACL 50 ML IV SCH (20:57)
[2016-08-22] MEDS: DEXMEDETOMIDINE HCL 400 MCG in NS 100 ML IV SCH (04:58)
--- NOTE | 2016-08-22 07:27 | SOAPPROG ---
SOAP Progress Note Assessment/Plan: Assessment: 86 yo M POD #2 left craniotomy for evacuation of SDH Plan: neuro; stable, post op CT with enlargement of left occipital ICH respiratory failure: per pulmonary on precedex for sedation daughter to arrive today, she may consider comfort care on keppra please call with neuro changes discussed with Dr Meek 08/22/16 07:23 Subjective: chart reviewed Objective: Vital Signs Temp Pulse Resp BP Pulse Ox 36.6 C 66 18 145/51 H 100 08/22/16 04:00 08/22/16 06:00 08/22/16 06:00 08/22/16 06:00 08/22/16 06:00 Laboratory Results 08/21/16 04:30 08/21/16 04:30 08/21/16 08/22/16 08/23/16 05:59 05:59 05:59 Intake Total 2716 1006 Output Total 1085 370 Balance 1631 636 PT 17.3 SEC (12.0-15.0) H 08/20/16 14:30 INR 1.42 (0.83-1.16) H 08/20/16 14:30 intubated/sedated pupils: 2 mm ou min reactive spontaneous movement of left arm/leg limited movement of right arm/leg C/D/I ICD10 Worksheet Patient Problems: Problems Problem Status Onset Hematoma Acute Subarachnoid hemorrhage Acute Subdural hemorrhage Acute Nausea & vomiting Acute
[2016-08-22] MEDS: INSULIN REGULAR HUMAN 100 UNIT/ML SC SCH ×2 (08:44→13:18)
[2016-08-22] MEDS: CHLORHEXIDINE GLUCONATE 15 ML UDL PO SCH ×2 (08:48→19:54)
[2016-08-22] MEDS: SENNOSIDES/DOCUSATE SODIUM TAB PO SCH (08:49)
[2016-08-22] MEDS: levETIRAcetam 500 MG in NS 100 ML IV SCH (08:59)
--- NOTE | 2016-08-22 09:40 | PDINTPN ---
Information Systems Security Analyst Progress Note Assessment/Plan: Assessment: S/P SDH with evac and partial temporal lobectomy. Now with markedly increased intraparenchymal hemorrhage. Waking up, but not following commands, minimal movement on right. Very poor prognosis for meaningful recovery to independence in ADLs. Respiratory Failure: Remains on vent, oxygenation good. Diabetes: BSs now improved with insulin Anemia: Trended down slightly yesterday, not checked today Abnormal telemetry waveform. 12-lead ECG, troponins negative. ESRD: Last HD 08/21 Plan: Continue vent support, insulin, and BS checks. Follow Hgb. I discussed the patient's case with his daughter via phone 08/21. I told her that his prognosis for meaningful recovery and independence was close to nil. She agrees that comfort care is appropriate, but would like him kept on the ventilator until she can arrive from [place] later today. She has made him made DNR. 08/22/16 09:45 Subjective: Eyes open spontaneously, not tracking or following commands. Objective: Vital Signs Temp Pulse Resp BP Pulse Ox 36.6 C 62 18 145/55 H 100 08/22/16 08:00 08/22/16 09:00 08/22/16 09:00 08/22/16 09:00 08/22/16 09:00 Laboratory Results 08/21/16 04:30 08/21/16 04:30 08/21/16 08/22/16 08/23/16 05:59 05:59 05:59 Intake Total 2716 1006 Output Total 1085 370 250 Balance 1631 636 -250 PT 17.3 SEC (12.0-15.0) H 08/20/16 14:30 INR 1.42 (0.83-1.16) H 08/20/16 14:30 Physical Exam - Physical Exam General Appearance: alert, no apparent distress EENT: ET tube, other (s/p craniectomy) Neck: normal inspection Respiratory: lungs clear, normal breath sounds Abdomen: normal bowel sounds, non-tender Skin: normal color, warm/dry Extremities: normal inspection Neuro/Psych: alert, normal mood/affect, oriented x 3 ICD10 Worksheet Patient Problems: Problems Problem Status Onset Hematoma Acute Subarachnoid hemorrhage Acute Subdural hemorrhage Acute Nausea & vomiting Acute
--- NOTE | 2016-08-22 09:54 | SOAPPROG ---
SOAP Progress Note Assessment/Plan: Assessment: STILL OBTUNDED WITH RT SIDE PARALYSIS VS STABLE/ AFEBRILE Plan:COMFORT CARE DISCUSSION WITH FAMILY 08/22/16 09:53 Objective: Vital Signs Temp Pulse Resp BP Pulse Ox 36.6 C 62 18 145/55 H 100 08/22/16 08:00 08/22/16 09:00 08/22/16 09:00 08/22/16 09:00 08/22/16 09:00 Laboratory Results 08/21/16 04:30 08/21/16 04:30 08/21/16 08/22/16 08/23/16 05:59 05:59 05:59 Intake Total 2716 1006 Output Total 1085 370 250 Balance 1631 636 -250 PT 17.3 SEC (12.0-15.0) H 08/20/16 14:30 INR 1.42 (0.83-1.16) H 08/20/16 14:30 ICD10 Worksheet Patient Problems: Problems Problem Status Onset Hematoma Acute Subarachnoid hemorrhage Acute Subdural hemorrhage Acute Nausea & vomiting Acute
--- NOTE | 2016-08-22 10:32 | SOAPPROG ---
SOAP Progress Note Assessment/Plan: Assessment/Plan: ESRD: on HD MWF, last dialyzed yesterday. - Given his poor prognosis, daughter is moving toward comfort care. - No plans for further HD but will assess again tomorrow based on further discussion with daughter to happen later today. Anemia: pt with SDH s/p evacuation and partial temporal lobectomy, with increasing intraparenchymal hemorrhage noted yesterday. Prognosis poor. Subjective: No acute events overnight. Pt continues to have dilated and fixed pupils, is moving arms around more today. He remains intubated. Objective: Vital Signs Temp Pulse Resp BP Pulse Ox 36.6 C 73 18 139/56 H 100 08/22/16 08:00 08/22/16 10:00 08/22/16 10:00 08/22/16 10:00 08/22/16 10:00 Laboratory Results 08/21/16 04:30 08/21/16 04:30 08/21/16 08/22/16 08/23/16 05:59 05:59 05:59 Intake Total 2716 1006 Output Total 1085 370 250 Balance 1631 636 -250 PT 17.3 SEC (12.0-15.0) H 08/20/16 14:30 INR 1.42 (0.83-1.16) H 08/20/16 14:30 General: sedated, restless Eyes: pupils fixed and dilated OP: intubated CV: RRR Resp: intubated and on vent Abd: Soft, NT Ext: +trace edema BLE Access: RUE AVF with thrill and bruit appreciated ICD10 Worksheet Patient Problems: Problems Problem Status Onset Hematoma Acute Subarachnoid hemorrhage Acute Subdural hemorrhage Acute Nausea & vomiting Acute
[2016-08-22 14:37] LABS: HEPATITIS Bs Ab QUANT 49.9 mIU/mL
[2016-08-22] MEDS: MIDAZOLAM 2 MG/2 ML VIAL IVP SCH ×11 (16:32→19:31)
[2016-08-22] MEDS: fentaNYL/NACL 100 ML IV SCH (17:58)
[2016-08-22] MEDS ORDERED: MIDAZOLAM 2 MG/2 ML VIAL IVP PRN (19:30)
[2016-08-22] MEDS ORDERED: LORazepam 2 MG/ML INJ ONE (21:08)
[2016-08-22] MEDS: LORazepam 2 MG/ML INJ IVP PRN (21:10)
[2016-08-23] MEDS: LORazepam 2 MG/ML INJ IVP PRN ×4 (02:53→16:59)
--- NOTE | 2016-08-23 08:32 | NEUSURGPN ---
Assessment/Plan: Assessment: 86 yo M POD #3 left craniotomy for evacuation of SDH Plan: neuro; stable, post op CT with enlargement of left occipital ICH Patient made DNR by daughter, comfort care on keppra please call with neuro changes discussed with Dr Meek Subjective: Unable to obtain Objective: Increased labor of breathing Not following any commands Moving left side only BRENDAN in place Urinary Catheter in Place: Yes Urinary Catheter Indication: Palliative Care Catheter Insertion Date: 08/20/16 - Physician Discussed Patient with : [facility] Physical Exam - Vitals, I&O, Labs I and O 08/22/16 08/23/16 08/24/16 05:59 05:59 05:59 Intake Total 1006 Output Total 370 540 Balance 636 -540 Weight 58.9 kg 59.7 kg 60.8 kg Intake: IV Infused (ml) 1006 Dexmedetomidine HCl 400 140 mcg In Ns 100 ml @ Per Protocol IV CONT ANGIE Rx#: [id number] Ns 1,000 ml @ TKO 25 mls/ 756 hr IV CONT ANGIE Rx#: [id number] Phenylephrine HCl 50 mg 26 In Ns 250 ml @ Per Protocol IV CONT ANGIE Rx#: [id number] fentaNYL/NACL 100 ml @ 5 84 mls/hr IV CONT ANGIE Rx#: [id number] Output: Urine (ml) 210 250 Catheter 210 250 OG Drainage (ml) 250 Large Bore (>12 Kinyarwanda) 250 Non-weighted Oral Wound Drainage (ml) 160 40 #1 Left Head Fran 160 40 Gutierrez Other: Number of Voids Catheter 1 Vital Signs Temp Pulse Resp BP Pulse Ox 36.4 C 87 16 147/97 H 92 08/23/16 07:52 08/23/16 07:52 08/23/16 07:52 08/23/16 07:52 08/23/16 07:52 Laboratory Results 08/21/16 04:30 08/21/16 04:30 ICD10 Worksheet Patient Problems: Problems Problem Status Onset Hematoma Acute Subarachnoid hemorrhage Acute Subdural hemorrhage Acute Nausea & vomiting Acute
[2016-08-23] MEDS: CHLORHEXIDINE GLUCONATE 15 ML UDL PO SCH (09:14)
--- NOTE | 2016-08-23 12:43 | TRAUMAPN ---
Assessment/Plan: s/p fall with large SDH s/p evacuation and occpital ICH made DNR/comfort care was extubated palliative consult S: unresponsive O: Lying in bed, does not respond to name, heavy breathing, appears comfortable Objective: Vital Signs Temp Pulse Resp BP Pulse Ox 35.6 C L 84 28 H 134/78 H 91 L 08/23/16 11:58 08/23/16 11:58 08/23/16 11:58 08/23/16 11:58 08/23/16 11:58 Laboratory Results 08/21/16 04:30 08/21/16 04:30 08/22/16 08/23/16 08/24/16 05:59 05:59 05:59 Intake Total 1006 Output Total 370 540 Balance 636 -540 PT 17.3 SEC (12.0-15.0) H 08/20/16 14:30 INR 1.42 (0.83-1.16) H 08/20/16 14:30
--- NOTE | 2016-08-24 08:09 | TRAUMAPN ---
Assessment/Plan: Assessment: Plan: Subjective: comatose, unresponsive to commands lungs clear, abd soft. pt is comfort care with o iv fluids, no nutrion. eval for hospice placement today. Objective: Vital Signs Temp Pulse Resp BP Pulse Ox 35.6 C L 84 29 H 133/64 H 89 L 08/23/16 23:36 08/23/16 23:36 08/23/16 23:36 08/23/16 23:36 08/23/16 23:36 Laboratory Results 08/21/16 04:30 08/21/16 04:30 08/23/16 08/24/16 08/25/16 05:59 05:59 05:59 Output Total 540 345 Balance -540 -345 PT 17.3 SEC (12.0-15.0) H 08/20/16 14:30 INR 1.42 (0.83-1.16) H 08/20/16 14:30
[2016-08-24 08:12] VITALS: BP 145/65; PULSE 79; RESP 26; TEMP 97.5; O2SAT 87
--- NOTE | 2016-08-24 09:28 | SOAPPROG ---
SOAP Progress Note Assessment/Plan: Assessment: 86 yo M POD #4 left craniotomy for evacuation of SDH Plan: neuro; patient is DNR/comfort care respiratory failure discussed with Dr Meek 08/22/16 07:23 08/24/16 09:26 Subjective: chart reviewed Objective: Vital Signs Temp Pulse Resp BP Pulse Ox 36.4 C 79 26 H 145/65 H 87 L 08/24/16 08:03 08/24/16 08:03 08/24/16 08:03 08/24/16 08:03 08/24/16 08:03 Laboratory Results 08/21/16 04:30 08/21/16 04:30 08/23/16 08/24/16 08/25/16 05:59 05:59 05:59 Output Total 540 345 Balance -540 -345 PT 17.3 SEC (12.0-15.0) H 08/20/16 14:30 INR 1.42 (0.83-1.16) H 08/20/16 14:30 obtunded grimaces to painful stimuli pupils: 3 mm ou min reactive C/d/I ICD10 Worksheet Patient Problems: Problems Problem Status Onset Hematoma Acute Subarachnoid hemorrhage Acute Subdural hemorrhage Acute Nausea & vomiting Acute
[2016-08-24] MEDS: LORazepam 2 MG/ML INJ IVP PRN (10:42)
--- NOTE | 2016-08-24 15:20 | PDIAF ---
- Diagnosis Diagnosis: coma Code Status: Do Not Resuscitate - Medication Management Discharge Medications: Refer to the Discharge Home Medication list for PRN reason. - Orders Services needed: Registered Nurse - Follow Up Care Current Providers and Referrals: Patient,NotPresent [Primary Care Provider] - As per Instructions
--- NOTE | 2016-08-24 16:16 | GDS ---
PRESENT ILLNESS: The patient was admitted on 08/20 after found down inside his house with a scalp l aceration and unconscious. On arrival to [facility], he was unresponsive. A CT sca n showed subdural and subarachnoid hemorrhaging with a [id number] shift. The patient was taken t o the operating room on 08/20/2016, where a frontotemporal craniotomy and evacuation of subdural hem atoma was done, a partial temporal lobectomy. Postoperatively, the patient remained comatose. Afte r a discussion with family, it was appropriate to make him comfort care; and at the time of discharg e, he is going to hospice. FINAL DIAGNOSIS: Traumatic subdural and subarachnoid hemorrhage. DISPOSITION: Transfer to hospice. /[id number]/MODL
== END 2016-08-24 16:19 | disposition hospice, home (50) | DRG 25 ==
LOC: EDUNIT# → F2N 16:23 → F3N 08-22 21:35
PROVIDERS: ADMIT Surgery; ATTEND Surgery
PROC: 00C40ZZ Extirpation of Matter from Intracranial Subdural Space, Open Approach (ICD-10-PCS; principal; 2016-08-20 13:00)
PROC: 00B70ZZ Excision of Cerebral Hemisphere, Open Approach (ICD-10-PCS; principal; 2016-08-20 13:00)
PROC: 0HQ0XZZ Repair Scalp Skin, External Approach (ICD-10-PCS; principal; 2016-08-20 13:00)
PROC: 0BH17EZ Insertion of Endotracheal Airway into Trachea, Via Natural or Artificial Opening (ICD-10-PCS; 2016-08-20 13:00)
PROC: 5A1955Z Respiratory Ventilation, Greater than 96 Consecutive Hours (ICD-10-PCS; 2016-08-20 13:00)
PROC: 5A1D00Z (ICD-10-PCS; 2016-08-21)
DX: S06.5X9A Traumatic subdural hemorrhage with loss of consciousness of unspecified duration, initial encounter (principal); S06.6X9A Traumatic subarachnoid hemorrhage with loss of consciousness of unspecified duration, initial encounter; N18.6 End stage renal disease; J96.90 Respiratory failure, unspecified, unspecified whether with hypoxia or hypercapnia; S01.01XA Laceration without foreign body of scalp, initial encounter; R40.20 Unspecified coma; R40.2432 Glasgow coma scale score 3-8, at arrival to emergency department; E11.22 Type 2 diabetes mellitus with diabetic chronic kidney disease; X58.XXXA Exposure to other specified factors, initial encounter; Z66 Do not resuscitate; Z51.5 Encounter for palliative care; Z99.2 Dependence on renal dialysis
CPT/HCPCS: 82947-QW; 86705-90; C1713; J0330; J0690; J1250; J1815; J1953; J2250; J2370; J2597; J2704; J3010; L0120; P9016